=== PATIENT | female | born 1990 | race Caucasian/White ===

== ENCOUNTER 2016-09-11 08:26 | Emergency (ER) | payer OTHER ==
[~2016-09-11] VITALS: Ht 154.9 cm; Wt 65.8 kg
[2016-09-11 09:13] LABS: ABSOLUTE BASOPHIL COUNT 0.1 /CUMM (0.0-0.2); ABSOLUTE EOSINOPHIL COUNT 0.1 /CUMM (0.0-0.7); ABSOLUTE LYMPH COUNT 2.6 /CUMM (1.2-3.4); ABSOLUTE MONOCYTE COUNT 0.6 /CUMM (0.10-0.60); BASOPHIL % 0.8 % (0.0-2.0); EOSINOPHIL % 0.7 % (0-5); GRANULOCYTE % 68.1 % (42.2-75.2); HEMATOCRIT 45.2 % (37-47); MEAN CORPUSCULAR HGB 29.2 PG (27.0-31.0); MEAN CORPUSCULAR HGB CONC 33.4 G/DL (33.0-37.0); MEAN CORPUSCULAR VOLUME 87.3 FL (81.0-99.0); MEAN PLATELET VOLUME 8.2 FL (7.4-10.4); PLATELET COUNT 326 /CUMM (130-400); RBC DISTRIBUTION WIDTH 13.6 % (11.5-14.5); RED BLOOD CELL CT 5.18 /CUMM (4.20-5.40); WHITE BLOOD CELL COUNT 10.3 /CUMM (4.8-10.8)
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
[2016-09-11] MEDS ORDERED: ALPRAZOLAM1 M2 PO (10:05)
[2016-09-11] MEDS ORDERED: SERTRALINE HCL100 MG PO (10:05)
[2016-09-11] MEDS ORDERED: JUNEL FE 1.5 M1 EACH PO (10:06)
[2016-09-11] MEDS ORDERED: PROAIR HFA8.5 GM INH (10:07)
--- NOTE | 2016-09-11 11:58 | ULTRASOUND REPORT ---
EXAMINATION: TRANSVAGINAL AND TRANSABDOMINAL ULTRASOUND OF THE PELVIS CLINICAL INFORMATION: Evaluate for torsion/cyst. Left lower pelvic pain. History of PCOS. COMPARISON: 04/04/2009 TECHNIQUE: Real-time scanning of the pelvis is acquired via transabdominal and transvaginal approach. Transvaginal images were obtained for more detailed evaluation of the ovaries. FINDINGS: UTERUS: Anteverted. Normal in size and appearance, measuring 7.7 3 x 3.7 cm (SAG x AP x TRANS). Cervical Length: 2.7 cm. Maximum Endometrial Thickness: 0.8 cm. Myometrium: Normal. OVARIES AND ADNEXA: Ovaries are normal in size. Multiple small peripheral follicles are present at the left ovary, measuring between 0.3 and 0.6 cm in diameter, consistent with reported history of polycystic ovaries. Multiple peripheral follicles are also present in the right ovary. No adnexal mass. Arterial and venous waveforms are present in both ovaries on spectral Doppler evaluation. Right Ovary: 2.7 x 1.3 x 1.9 cm, (previously 3.0 x 2.0 x 1.7 cm) volume 3.8 mL. Left Ovary: 3.0 x 1.6 x 2.6 cm (previously 3.1 x 2.1 x 2.2 cm), volume 7.2 mL. FREE FLUID: None. IMPRESSION: Multiple peripheral follicles in both ovaries which, given the appropriate clinical and laboratory findings, would be supportive of polycystic ovarian syndrome . Otherwise normal pelvic ultrasound. No evidence of ovarian torsion.
--- NOTE | 2016-09-11 14:30 | CT SCAN REPORT ---
EXAMINATION: CT ABDOMEN AND PELVIS WITH CONTRAST CLINICAL INFORMATION: 26-year-old female with lower abdominal pain. Nausea, vomiting. COMPARISON: CT of the abdomen and pelvis done on 05/04/2018. TECHNIQUE: Multidetector volumetric imaging was performed of the abdomen and pelvis before and after the IV administration of 98 mL of Optiray 320 intravenous contrast. Sagittal and coronal reformatted images were obtained on the technologist's workstation. DLP: 283.91 mGy-cm FINDINGS: LUNG BASES: The visualized lung bases are unremarkable. LIVER, GALLBLADDER, AND BILIARY TREE: Stable focal somewhat linear hypodensity is noted around the falciform ligament, most consistent with focal fatty infiltration, otherwise unremarkable. The gallbladder is unremarkable with no evidence of radiopaque gallstones, gallbladder wall thickening, or obvious pericholecystic inflammatory changes. PANCREAS: Unremarkable. SPLEEN: Unremarkable. ADRENAL GLANDS: Unremarkable. KIDNEYS AND URETERS: The kidneys are normal in size, shape, and attenuation. No hydronephrosis, hydroureter, or calculi seen. No perinephric stranding. BLADDER: Unremarkable. GASTROINTESTINAL TRACT: The small and large bowel are unremarkable. The visualized part of the appendix appear unremarkable (see the sanchez images). ABDOMINAL WALL: No significant hernia is appreciated. LYMPH NODES: Normal. VASCULAR: Unremarkable. PELVIC VISCERA: Bilateral adnexal hypodensities are present likely represent enlarged follicle-containing ovaries. The uterus is slightly deviated to the right. Small amount of free fluid is noted, new since prior phleboliths are seen in the pelvis. OSSEOUS STRUCTURES: No suspicious lytic or sclerotic abnormality present. IMPRESSION: 1. Focal stable hypodensity is noted within the left lobe of the liver around the falciform ligament, most consistent with focal fatty infiltration, unchanged since 05/04/2008. 2. The appendix is partially visualized, the visualized part of the appendix appear unremarkable. 3. Bilateral adnexal hypodensities are noted, likely represent enlarged follicle-containing ovaries. Small amount of free fluid is also noted within the pelvis.
[2016-09-11] MEDS ORDERED: ZOFRAN ODT4 M1 SL (14:51)
[2016-09-11 14:54] VITALS: BP 110/60
== END 2016-09-11 15:01 ==
LOC: ERH 08:26
PROVIDERS: Physician Assistant Surgical
DX: R10.32 Left lower quadrant pain (principal); R11.2 Nausea with vomiting, unspecified; F41.9 Anxiety disorder, unspecified
CPT/HCPCS: 74177; 81001; 81025; 96361; 96365; 96375; 96376; J1885; J2405; J2550

== ENCOUNTER 2016-11-13 12:28 | Emergency (ER) | payer OTHER ==
[~2016-11-13] VITALS: Ht 154.9 cm; Wt 67.6 kg
[~2016-11-13 12:28] MED LIST: ALPRAZOLAM1 M2 PO; JUNEL FE 1.5 M1 EACH PO; PROAIR HFA8.5 GM INH; SERTRALINE HCL100 MG PO; ZOFRAN ODT4 M1 SL
[2016-11-13 12:32] VITALS: BP 131/85
[2016-11-13] MEDS ORDERED: PREDNISONE10 M2 PO (12:58)
[2016-11-13] MEDS ORDERED: PEPCID20 M1 PO (12:58)
[2016-11-13] MEDS ORDERED: BENADRYL25 MG PO (12:58)
--- NOTE | 2016-11-13 12:59 | ED GI/GU/ABDOMINAL COMPLAINT ---
History of Present Illness General Chief Complaint: General Adult Stated Complaint: CAT SCAN 11/12 AND SKIN IS NOW ITCHY,FEET ARE RED Source: patient Exam Limitations: no limitations Vital Signs & Intake/Output Vital Signs & Intake/Output Vital Signs Date Time Temp Pulse Resp B/P B/P Pulse O2 O2 Flow FiO2 Mean Ox Delivery Rate 11/13 1232 98.9 109 20 131/85 97 Room Air Allergies Coded Allergies: morphine (Severe, PANIC ATTACK 09/11/16) Reconcile Medications Albuterol Sulfate (Proair Hfa) 90 MCG HFA.AER.AD 2 PUF INH Q4-6 PRN PRN BREATHING PROBLEMS (Reported) Alprazolam 1 MG TABLET 1 TAB PO TID ANXIETY (Reported) Diphenhydramine HCl (Benadryl) 25 MG CAPSULE 1 CAP PO BID ALLERGIC REACTION Famotidine (Pepcid) 20 MG TABLET 1 TAB PO BID ALLERGIC REACTION Norethindrone-E.estradiol-Iron (Junel Fe 1.5 MG-30 Mcg Tablet) 1.5 MG-30 MCG (21 )/75 MG (7) TABLET 1 TAB PO DAILY BC (Reported) Ondansetron (Zofran Odt) 4 MG TAB.RAPDIS 1 TAB SL TID PRN NASUEA Prednisone 10 MG TABLET 2 TAB PO DAILY ALLERGIC REACTION Sertraline HCl 100 MG TABLET 2 TAB PO DAILY MENTAL HEALTH (Reported) Triage Note: PT PRESENTS TO ER S/P CT SCAN YESTERDAY. PT STATES SHE HAD CT SCAN DYE YESTERDAY AND EVER SINCE SCAN HAS FELT VERY ITCHY AND HER FEET ARE BRIGHT RED. PT HAD A CT SCAN OF HER ABDOMEN DUE TO DIGETSION ISSUES. Triage Nurses Notes Reviewed? yes ? N Is pt currently ? No Onset: SINCE YESTERDAY ABOUT 6PM Duration: hour(s): Timing: no prior history Quality/Severity: burning, ITCHING Location: GENERALIZED ITCHING WITH BILATERAL HAND/FEET BURNING Radiation: no radiation Activities at Onset: rest HPI: PT IS A 26 Y/O FEMALE WITH H/O ?IMPAIRED GI TRANSIT TIME (MANAGED BY DR. WOOD) PRESENTING WITH GENERALIZED PRURITIS AND BURNING TO BILATERAL HANDS AND FEET SINCE ~6PM YESTERDAY S/P CT SCAN ABD/PELVIS WITH IV CONTRAST DYE AT ~ 7AM. ALSO REPORTS SOME ERYTHEMA TO BILATERAL FEET THAT HAS SINCE BEEN IMPROVING. ONLY KNOWN ALLERGY IS TO MORPHINE. DENIES ANY CP, SOB, DYSPHAGIA, OR PHARYNGITIS. HAS NOT TRIED ANYTHING FOR SYMPTOMATIC RELIEF. Patient denies any tongue swelling lip swelling difficulty swallowing difficulty breathing. No medications given prior to arrival. Patient does state that she has significant and almost complete resolution of her symptoms prior to arrival. Has significant improvement of erythema (TATY BYNUM) Past History Travel History Traveled to [place] past 21 day No Medical History Any Pertinent Medical History? see below for history Psychiatric: anxiety, depression Endocrine: POLYCYSTIC OVARIES Surgical History Surgical History: non-contributory Psychosocial History What is your primary language Kosovan Tobacco Use: Current Daily Use Daily Tobacco Use Amount/Type: => 5 Cigarettes daily Family History Hx Contributory? No (TATY BYNUM) Review of Systems Review of Systems Constitutional: Reports: no symptoms. EENTM: Reports: no symptoms. Respiratory: Denies: cough, short of breath, stridor, wheezing. Cardiovascular: Denies: chest pain. GI: Denies: abdominal pain, nausea, vomiting. Genitourinary: Reports: no symptoms. Musculoskeletal: Reports: no symptoms. Skin: Reports: erythema. Neurological/Psychological: Reports: no symptoms. Hematologic/Endocrine: Reports: no symptoms. Immunologic/Allergic: Reports: other (GENERALIZED PRURITUS ). All Other Systems: Reviewed and Negative (TATY BYNUM) Physical Exam Physical Exam General Appearance: well developed/nourished, no apparent distress, comfortable Head: atraumatic Eyes: Bilateral: normal appearance. Ears, Nose, Throat, Mouth: NO OROPHARYNGEAL EDEMA/ERYTHEMA Respiratory: normal breath sounds, no respiratory distress, lungs clear Cardiovascular: regular rate/rhythm Gastrointestinal: soft, non-tender Skin: intact, normal color, warm/dry Comments: Patient has no stridor on exam no signs of anaphylaxis No tongue swelling no lip swelling no pharyngeal swelling No urticaria no hives no redness Core Measures ACS in differential dx? No Severe Sepsis Present: No Septic Shock Present: No (TATY BYNUM) Progress Differential Diagnosis: CONTRAST INDUCED ALLERGY VS CONTACT DERMATITIS, NO EVIDENCE OF ANAPHYLAXIS Plan of Care: Current Medications Sig/Jose Raul Start time Last Medication Dose Stop Time Status Admin Diphenhydramine HCl 25 MG ONCE ONE 11/13 1300 UNVr (Benadryl) 11/13 1301 Famotidine 20 MG ONCE ONE 11/13 1300 UNVr (Pepcid) 11/13 1301 Prednisone 60 MG ONCE ONE 11/13 1300 UNVr 11/13 1301 PT IS IN NAD, RESTING COMFORTABLY, NO OROPHARYNGEAL EDEMA/ERYTHEMA, LUNGS CTAB, NO STRIDOR, SKIN IS INTACT WITH NO RASHES, ERYTHEMA, OR URTICARIA. No sign no signs of anaphylaxis or urticaria or angioedema Patient will be treated for concerns of delayed onset of contrast dye allergy (TATY BYNUM) Initial ED EKG: none (TATY BYNUM) Departure Departure Disposition: HOME OR SELF CARE Condition: Stable Clinical Impression Primary Impression: Allergic reaction to contrast dye Referrals: JEANETTE GUTIÉRREZ,RICARDO Devlin (PCP/Family) Additional Instructions: As discussed begin the prescription of prednisone tomorrow as you receive this medication in the emergency room today. Begin a prescription of Benadryl as directed and Pepcid as directed. If symptoms worsen return to emergency room. Follow-up with her patient relations coordinator as directed. Prescription is waiting at your [facility] pharmacy Departure Forms: Customer Survey General Discharge Information Prescriptions: Current Visit Scripts Prednisone 2 TAB PO DAILY #4 TAB Famotidine (Pepcid) 1 TAB PO BID #4 TAB Diphenhydramine HCl (Benadryl) 1 CAP PO BID #4 CAP (TATY BYNUM) PA/WEEKEND RECEPTIONIST Co-Sign Statement Statement: ED Attending supervision documentation- [] I saw and evaluated the patient. I have also reviewed all the pertinent lab results and diagnostic results. I agree with the findings and the plan of care as documented in the PA's/WEEKEND RECEPTIONIST's documentation. x I have reviewed the ED Record and agree with the PA's/WEEKEND RECEPTIONIST's documentation. [] Additions or exceptions (if any) to the PAs/WEEKEND RECEPTIONIST's note and plan are summarized below: [] (JADEN GUTIÉRREZ,MARTIN) ED Attending Observation Initial Observation Note: I have seen and personally examined LY BRIGGS on 11/13/16 at 1321. I agree with the current emergency department documentation. The disposition (admission or discharge) is uncertain at this time, she needs a period of observation for the following reason(s): The ED Nurse caring for this patient has been personally informed as to what the patient is being observed for. (TATY BYNUM)
== END 2016-11-13 13:09 ==
LOC: ERH 12:28
DX: T50.8X5A Adverse effect of diagnostic agents, initial encounter (principal)